=== PATIENT | female | born 1965 | race Caucasian/White ===

== ENCOUNTER 2018-09-06 19:02 | Emergency (ER) | payer MEDICAID ==
[~2018-09-06] VITALS: Ht 157.5 cm; Wt 112.5 kg
[~2018-09-06 19:02] MED LIST: ADIPEX PO; AMLODIPINE/BENAZEPRI PO; AMO500 PO; DIA5 PO; GLU500 PO; MULTIVITAMIN/MINERAL PO; VITAMIN D3 PO; ZOC20 PO
[2018-09-06 19:44] VITALS: Ht 157.5 cm; Wt 112.5 kg
[2018-09-06 21:55] VITALS: BP 157/56
== END 2018-09-06 21:55 | disposition home or self-care (01) ==
LOC: ED 19:02
DX: E11.65 Type 2 diabetes mellitus with hyperglycemia (principal); I10 Essential (primary) hypertension; E78.00 Pure hypercholesterolemia, unspecified; M19.90 Unspecified osteoarthritis, unspecified site; Z98.890 Other specified postprocedural states; Z87.19 Personal history of other diseases of the digestive system
CPT/HCPCS: 82962; J7030

== ENCOUNTER 2018-09-26 09:32 | Emergency (ER) | payer MEDICAID ==
[~2018-09-26] VITALS: Ht 157.5 cm; Wt 111.1 kg
[2018-09-26 09:38] VITALS: BP 139/72; Ht 157.5 cm; Wt 111.1 kg
== END 2018-09-26 10:57 | disposition home or self-care (01) ==
LOC: ED 09:32
DX: S60.052A Contusion of left little finger without damage to nail, initial encounter (principal); I10 Essential (primary) hypertension; E11.9 Type 2 diabetes mellitus without complications; E78.00 Pure hypercholesterolemia, unspecified; M19.90 Unspecified osteoarthritis, unspecified site; V49.9XXA Car occupant (driver) (passenger) injured in unspecified traffic accident, initial encounter; Y93.I9 Activity, other involving external motion; Y92.413 State road as the place of occurrence of the external cause; Y99.8 Other external cause status